=== PATIENT | male | born 1985 | race Two or more races ===

== ENCOUNTER 2018-10-14 10:28 | Emergency (ER) | payer OTHER, BC ==
[2018-10-14 10:48] VITALS: BP 168/87; PULSE 71; TEMP 97.9; BMI 27.7
[2018-10-14] MEDS ORDERED: diazePAM 5 MG TABLET PO ONE (11:42)
[2018-10-14] MEDS ORDERED: KETOROLAC TROMETHAMINE 30 MG/1 ML VIAL IM ONE (11:42)
[2018-10-14] MEDS ORDERED: KETOROLAC TROMETHAMINE 30 MG/1 ML VIAL ONE (11:45)
[2018-10-14] MEDS ORDERED: diazePAM 5 MG TABLET ONE (11:45)
--- NOTE | 2018-10-14 11:47 | PDOC ---
History of Present Illness - General Chief Complaint: Back Pain Stated Complaint: BACK PAIN Time Seen by Provider: 10/14/18 11:36 History Source: Patient Exam Limitations: No Limitations - History of Present Illness Initial Comments: 10/14/18 11:49 33 year old male with no medical or surgical history presents with neck and back pain. Patient reports sharp pain in upper back and shoulders today while bending forward and placing 2 x 4 planks on a sidewalk at work. Patient complaining of pain with movement, denies numbness or tingling in fingers. Occurred: reports: just prior to arrival Severity: reports: moderate Pain Location: reports: back, neck Method of Injury: Yes: other (bending forward) Modifying Factors: improves with: immobilization Loss of Consciousness: no loss of consciousness Associated Symptoms (Fall): neck pain Past History - Travel Traveled outside of the country in the last 30 days: No Close contact w/someone who was outside of country & ill: No - Past Medical History Allergies/Adverse Reactions: Allergies Allergy/AdvReac Type Severity Reaction Status Date / Time No Known Allergies Allergy Verified 10/14/18 10:45 Home Medications: Ambulatory Orders Cyclobenzaprine HCl [Flexeril -] 10 mg PO HS #7 tablet 10/14/18 Naproxen [Naprosyn -] 500 mg PO BID #14 tablet 10/14/18 COPD: No Other medical history: DENIES - Surgical History Appendectomy: Yes - Immunization History Immunization Up to Date: No - Suicide/Smoking/Psychosocial Hx Smoking History: Never smoked Hx Alcohol Use: No Drug/Substance Use Hx: No Substance Use Type: None Trauma Specific PMHX - Complaint Specific PMHX Arthritis: No Back Injury: No Neck Injury: No Hx Sacro Iliac Joint Dysfunction: No Review of Systems - Review of Systems Able to Perform ROS?: Yes Is the patient limited Greek proficient: No Constitutional: No: Chills, Fever, Malaise HEENTM: No: Nose Congestion Respiratory: No: Shortness of Breath Cardiac (ROS): No: Lightheadedness ABD/GI: No: Nausea, Poor Appetite, Indigestion : No: Dysuria, Incontinence Musculoskeletal: Yes: Back Pain, Neck Pain Neurological: No: Headache, Tremors Psychiatric: No: Stressors *Physical Exam - Vital Signs Last Vital Signs Temp Pulse Resp BP Pulse Ox 97.9 F 71 18 168/87 98 10/14/18 10:46 10/14/18 10:46 10/14/18 10:46 10/14/18 10:46 10/14/18 10:46 - Physical Exam General Appearance: Yes: Nourished, Appropriately Dressed. No: Apparent Distress HEENT: positive: TMs Normal, Pharynx Normal Neck: positive: Supple. negative: Lymphadenopathy (R), Lymphadenopathy (L) Respiratory/Chest: positive: Lungs Clear Cardiovascular: positive: Regular Rhythm, Regular Rate Musculoskeletal: positive: Vertebral Tenderness (+thoracic midline tenderness). negative: CVA Tenderness (R), CVA Tenderness (L) Extremity: positive: Normal Capillary Refill Neurologic: positive: Fully Oriented, Alert Medical Decision Making - Medical Decision Making 10/14/18 11:54 33 year old male with no medical or surgical history presents with neck and back pain. Plan xray of cervical and thoracic spine analgesia and muscle relaxant 10/14/18 12:34 xray with no fracture of mis alignment feeling better after medication *DC/Admit/Observation/Transfer Diagnosis at time of Disposition: Musculoskeletal pain Back strain Qualifiers: Encounter type: initial encounter Qualified Code(s): S39.012A - Strain of muscle, fascia and tendon of lower back, initial encounter - Discharge Dispostion Disposition: HOME Condition at time of disposition: Good Decision to Admit order: No - Prescriptions Prescriptions: Cyclobenzaprine HCl [Flexeril -] 10 mg PO HS #7 tablet Naproxen [Naprosyn -] 500 mg PO BID #14 tablet - Referrals Referrals: Abihjit Villalba MD [Primary Care Provider] - Call tomorrow Jarad Wong MD [Staff Physician] - Call tomorrow (If symptoms worsens please call for further evaluation) - Patient Instructions Additional Instructions: May apply warm compress for 20 minutes 3 to 4 times daily Activity as tolerated Return for numbness or tingling in limbs - Post Discharge Activity Forms/Work/School Notes: Back to Work
== END 2018-10-14 12:41 | disposition home or self-care (01) ==
LOC: JERFT 10:28
PROC: 3E0233Z Introduction of Anti-inflammatory into Muscle, Percutaneous Approach (ICD-10-PCS; principal; 2018-10-14)
DX: S39.012A Strain of muscle, fascia and tendon of lower back, initial encounter (principal); M79.10 Myalgia, unspecified site; X58.XXXA Exposure to other specified factors, initial encounter; Y93.89 Activity, other specified; Y92.89 Other specified places as the place of occurrence of the external cause
CPT/HCPCS: 72040-TC; 72070-TC-FY; 99281-25

== ENCOUNTER 2020-08-31 18:05 | Emergency (ER) | payer BC, OTHER ==
[2020-08-31 18:17] VITALS: BP 123/87; PULSE 83; TEMP 98.6; BMI 28.0
[2020-08-31] MEDS ORDERED: ONDANSETRON 4 MG/2 ML VIAL IVPUSH ONE (20:26)
[2020-08-31] MEDS ORDERED: ONDANSETRON 4 MG/2 ML VIAL ONE (20:34)
[2020-08-31 21:35] LABS: BASO % 0.7 % (0-2.0); EOS % 1.3 % (0-4.5); HEMATOCRIT 42.8 % (35.4-49); HEMOGLOBIN 14.6 GM/dL (11.7-16.9); MCH 30.5 pg (25.7-33.7); MCHC 34.1 g/dl (32.0-35.9); MEAN CELL VOLUME 89.3 fl (80-96); MEAN PLT VOLUME 10.3 fl (7.5-11.1); MONO % 14.2 % (3.8-10.2); NEUT % 30.8 % (42.8-82.8); PLATELET COUNT 159 K/MM3 (134-434); RBC 4.79 M/mm3 (4.00-5.60); RDW 14.4 % (11.9-15.9)
[2020-08-31] MEDS ORDERED: ACETAMINOPHEN 325 MG TABLET (FP) PO ONE (21:46)
[2020-08-31] MEDS ORDERED: ACETAMINOPHEN 325 MG TABLET (FP) ONE (22:14)
[2020-08-31 22:16] LABS: EPI CELLS 3 /uL (0-25.1); HYALINE CASTS 1 /uL (0-3.1); URINE APPEARANCE CLEAR; URINE BACTERIA 1109 /uL (0-1359); URINE BILIRUBIN 1+ (NEGATIVE); URINE COLOR DK YELLOW; URINE GLUCOSE (UA) NEGATIVE (NEGATIVE); URINE KETONE TRACE (NEGATIVE); URINE LEUK ESTERASE NEGATIVE (NEGATIVE); URINE NITRITE NEGATIVE (NEGATIVE); URINE PROTEIN 1+ (NEGATIVE); URINE RBC 18 /uL (0-23.9); URINE WBC 8 /uL (0-25.8)
[2020-08-31 22:35] LABS: POTASSIUM 4.4 mmol/L (3.5-5.1)
[2020-08-31 22:37] LABS: CALCIUM 9.5 mg/dL (8.5-10.1)
[2020-08-31 22:38] LABS: ALBUMIN 4.6 g/dl (3.4-5.0); BLOOD UREA NITROGEN 16.9 mg/dL (7-18)
[2020-08-31 22:41] LABS: CREATININE 0.7 mg/dL (0.55-1.3)
[2020-08-31 22:43] LABS: TOT PROT 7.6 g/dl (6.4-8.2)
[2020-08-31 22:44] LABS: BILIRUBIN,TOTAL 1.4 mg/dL (0.2-1)
== END 2020-09-01 01:10 | disposition home or self-care (01) ==
LOC: JER 18:05
PROC: 3E033GC Introduction of Other Therapeutic Substance into Peripheral Vein, Percutaneous Approach (ICD-10-PCS; principal; 2020-08-31)
DX: N30.00 Acute cystitis without hematuria (principal)
CPT/HCPCS: 36415; 80053; 81003; 85025; 87086; 87491; 87591; 99284-25

== ENCOUNTER 2021-03-07 | Emergency (ER) | payer BC, OTHER ==
[2021-03-07 00:23] VITALS: BP 132/91; PULSE 87; TEMP 98; BMI 29.9
[2021-03-07] MEDS ORDERED: KETOROLAC TROMETHAMINE 60 MG/2 ML VIAL IM ONE (01:45)
[2021-03-07] MEDS ORDERED: KETOROLAC TROMETHAMINE 60 MG/2 ML VIAL ONE (01:48)
[2021-03-07] MEDS ORDERED: LIDOCAINE 5% TOPICAL PATCH TP ONE (01:57)
[2021-03-07] MEDS ORDERED: LIDOCAINE 5% TOPICAL PATCH ONE (02:34)
[2021-03-07] MEDS ORDERED: LIDOCAINE PATCH REMOVAL MC SCH (22:00)
== END 2021-03-07 02:36 | disposition home or self-care (01) ==
LOC: JER
PROC: 3E0233Z Introduction of Anti-inflammatory into Muscle, Percutaneous Approach (ICD-10-PCS; principal; 2021-03-07)
DX: M79.622 Pain in left upper arm (principal)
CPT/HCPCS: 93005; 93010; 99284-25